=== PATIENT | female | born 1965 | race Caucasian/White ===

== ENCOUNTER → 2016-09-26 | Outpatient (CLI) | payer OTHER ==
[~2016-09-26] MED LIST: CLC/300 PO; DOXY-300 PO; FOLI1TAB7 PO; LEVO500T19 PO; METH2.5T PO; MTR800 PO; ONDA4TAB46 PO; OXYC1TAB3 PO; [UNRECOGNIZED DRUG - CODE] PO
[2016-09-26 13:18] LABS: BASO % 0.3 %; BASO ABS # 0.03 K/uL (0-0.2); COMPLETE YES; EOS % 1.5 %; HEMATOCRIT 43.3 % (37-47); IG% 0.4 %; LYMPH % 23.9 %; LYMPH ABS # 2.27 K/uL (1.2-3.4); MEAN CELL VOLUME 90.6 fL (80-100); MEAN CORPUSCULAR HGB CONC 34.2 g/dl (32-36); MEAN PLATELET VOLUME 10.4 fL (7.4-10.4); MONO % 5.2 %; NEUT % 68.7 %; PLATELET COUNT 318 K/uL (130-400); RED BLOOD COUNT 4.78 M/uL (4.2-5.4); WHITE BLOOD COUNT 9.51 K/uL (4.8-10.8)
[2016-09-26 13:28] LABS: ALT/SGPT 30 U/L (12-78); BLOOD UREA NITROGEN 18 mg/dl (7-18); CALCIUM 9.1 mg/dl (8.5-10.1); CARBON DIOXIDE 25 mmol/L (21-32); CHLORIDE 112 mmol/L (98-107); CHOLESTEROL 199 mg/dl (0-200); CREATININE 0.82 mg/dl (0.60-1.20); GLUCOSE 87 mg/dl (70-99); POTASSIUM 3.9 mmol/L (3.5-5.1); SODIUM 141 mmol/L (136-145); TRIGLYCERIDES 47 mg/dl (0-150); VERY LOW DENSITY LIPOPROT CALC 9 mg/dl
[2016-09-26 13:39] LABS: ALB/GLOB RATIO 1.1 (0.9-2); ALKALINE PHOSPHATASE 62 U/L (45-117); AST/SGOT 22 U/L (15-37); CHOLESTEROL/HDL RATIO 3.6; HDL CHOLESTEROL 55 mg/dl; LDL CHOLESTEROL CALCULATED 135 mg/dl
[2016-09-26 13:39] LABS: ALKALINE PHOSPHATASE 64 U/L (45-117); ALT/SGPT 31 U/L (12-78); AST/SGOT 20 U/L (15-37); C-REACTIVE PROTEIN < 0.29 mg/dl (0-0.29)
[2016-09-26 14:06] LABS: CYCLIC CITRULLINATED PEPT IGG 101.16 U/mL (0-4.99)
[2016-09-28 15:33] LABS: QUANTIF TB AG-NIL 0.09 IU/ML; QUANTIFERON NIL 0.04 IU/ML
== END | disposition home or self-care (01) ==
LOC: C.LABMFLN 08:33
PROVIDERS: ATTEND Internal Medicine
DX: Z00.00 Encounter for general adult medical examination without abnormal findings (principal); Z13.220 Encounter for screening for lipoid disorders; Z13.29 Encounter for screening for other suspected endocrine disorder; Z13.1 Encounter for screening for diabetes mellitus; M19.90 Unspecified osteoarthritis, unspecified site; R89.4 Abnormal immunological findings in specimens from other organs, systems and tissues

== ENCOUNTER → 2016-11-20 | Outpatient (CLI) | payer OTHER ==
[2016-11-20 13:08] LABS: PROTHROMBIN TIME (PATIENT) 10.8 SECONDS (9.0-12.0)
[2016-11-20 13:19] LABS: BASO % 0.2 %; BASO ABS # 0.02 K/uL (0-0.2); COMPLETE YES; EOS % 1.6 %; HEMATOCRIT 47.4 % (37-47); IG% 0.7 %; LYMPH % 23.4 %; MEAN CELL VOLUME 92.2 fL (80-100); MEAN CORPUSCULAR HEMOGLOBIN 30.4 pg (25-34); MEAN CORPUSCULAR HGB CONC 32.9 g/dl (32-36); MEAN PLATELET VOLUME 10.2 fL (7.4-10.4); MONO % 5.6 %; NEUT % 68.5 %; PLATELET COUNT 337 K/uL (130-400); RED BLOOD COUNT 5.14 M/uL (4.2-5.4); WHITE BLOOD COUNT 10.27 K/uL (4.8-10.8)
[2016-11-22 23:57] LABS: HEPATITIS C VIRAL RNA BY PCR <15 NOT DETECTED IU/ML (<15); HEPATITIS C VIRAL RNA(LOG) PCR <1.18 NOT DETECTED LOG IU/ML (<1.18)
[2016-11-23 17:35] LABS: HEPATITIS C RNA TMA QUAL Not detected
== END | disposition home or self-care (01) ==
LOC: C.LABMFLN 10:25
PROVIDERS: ATTEND Internal Medicine
DX: Z01.818 Encounter for other preprocedural examination (principal); Z86.19 Personal history of other infectious and parasitic diseases

== ENCOUNTER → 2016-12-11 | Outpatient (CLI) | payer OTHER ==
[~2016-12-11] MED LIST changes: -DOXY-300 PO; -LEVO500T19 PO
[2016-12-11 18:16] LABS: HEMATOCRIT 42.8 % (37-47); MEAN CELL VOLUME 90.5 fL (80-100); MEAN CORPUSCULAR HEMOGLOBIN 31.3 pg (25-34); MEAN CORPUSCULAR HGB CONC 34.6 g/dl (32-36); MEAN PLATELET VOLUME 10.4 fL (7.4-10.4); PLATELET COUNT 312 K/uL (130-400); RED BLOOD COUNT 4.73 M/uL (4.2-5.4); WHITE BLOOD COUNT 9.41 K/uL (4.8-10.8)
== END | disposition home or self-care (01) ==
LOC: C.LABMFLN 12:25
PROVIDERS: ATTEND Internal Medicine
DX: M05.79 Rheumatoid arthritis with rheumatoid factor of multiple sites without organ or systems involvement (principal)

== ENCOUNTER → 2016-12-14 | Outpatient (CLI) | payer OTHER ==
[~2016-12-14] MED LIST changes: +DOXY-300 PO; +LEVO500T19 PO
== END | disposition home or self-care (01) ==
LOC: C.PATHSPEC 13:17
PROVIDERS: ATTEND Dermatology
DX: L82.1 Other seborrheic keratosis (principal)

== ENCOUNTER 2016-12-16 10:13 | Emergency (ER) | payer OTHER ==
[~2016-12-16] VITALS: Ht 175.3 cm; Wt 93.2 kg
[2016-12-16 10:31] VITALS: TEMP 37.2; Ht 175.3 cm; Wt 93.2 kg
[2016-12-16] MEDS ORDERED: ONDA4TAB46 PO (10:40)
[2016-12-16] MEDS ORDERED: [UNRECOGNIZED DRUG - CODE] PO (10:40)
[2016-12-16] MEDS ORDERED: METH2.5T PO (10:40)
[2016-12-16] MEDS ORDERED: MTR800 PO (10:40)
[2016-12-16] MEDS ORDERED: OXYCODONE IR HOME PACK PO STA (11:06)
[2016-12-16] MEDS ORDERED: AMOXICIL/CLAVU 875MG HOME PACK PO STA (11:06)
[2016-12-16] MEDS ORDERED: CLINDAMYCIN HCL 150 MG CAP PO STA (11:10)
[2016-12-16] MEDS ORDERED: CLINDAMYCIN 150MG HOME PACK PO STA (11:10)
[2016-12-16] MEDS ORDERED: CLC/300 PO (11:12)
[2016-12-16] MEDS ORDERED: OXYC1TAB3 PO (11:12)
--- NOTE | 2016-12-16 11:12 | EMERGENCY ROOM VISIT NOTE ---
ED Visit Note First contact with patient: 10:53 CHIEF COMPLAINT: "Toothache". HISTORY OF PRESENT ILLNESS: This 51-year-old female patient presented to the emergency department via private vehicle with a progressive toothache for past 4 days. The patient believes it is coming from right inferior posterior molar. The pain is now steady and severe and radiates to the face. The patient does not a dentist appointment set up as of yet. They rate their pain a 10/10 and the ibuprofen and Tylenol they have been taking has not relieved the pain. Denies fever but does note she had swelling initially, but has been on penicillin for the past few days. She had to going her pain initially, but now it has returned. The patient denies any discharge from the mouth. REVIEW OF SYSTEMS: A 6 system review of systems was completed with positives and pertinent negatives listed in the HPI. ALLERGIES: None MEDICATIONS: As noted below PMH: No pertinent SOCIAL HISTORY: No pertinent. PHYSICAL EXAM: Vitals are noted on the nurse's note and reviewed by myself. Vital signs stable. Temperature 37.2C orally. GENERAL: 51-year-old female, in no acute distress, nondiaphoretic, well-developed well-nourished. Mouth: The posterior right inferior tooth is very carious and the gum is swollen and tender around it, without any discharge or signs of an abscess. The remainder of the pharynx and tonsils are without erythema, edema, or exudate. The airway is patent. There is no facial swelling, cervical or submandibular lymphadenopathy. The patient appears uncomfortable and in pain. The patient has overall poor dental hygiene. EARS: External auditory canals clear, tympanic membranes pearly michele without erythema or effusion bilaterally. ED COURSE: Patient was seen and evaluated as above. She presents to us today with right inferior dental pain, and the posterior inferior right molar is in poor repair. It will need dental attention by dentist in the future, but at this time I believe that changing the antibiotic from penicillin to clindamycin is appropriate as she is on methotrexate, as well as giving her a pain medicine that will help above that of the baseline [id number] pain meds. She appears stable for outpatient management with a dentist, and our telephonic case manager provided her a list of dentists in the area that will participate. She is also to call the insurance [employer] to identify dentist in the area to participate. She is to return with worsening. She was educated upon management, educated upon worrisome symptoms in which to return, had questions as to discharge, and was discharged home in good condition. In the evaluation and treatment of this patient, the following differential diagnoses were considered: Periapical Abscess, Osteonecrosis of the Jaw, Dental Fracture, Dental Caries, Jeremy's Angina, Vincent's Angina, Facial Cellulitis. In the treatment of this patient controlled medication was utilized and therefore the [facility], Prescription Drug Monitoring Program website was utilized to look up this patient. No concerns were identified that would prohibit or alter my treatment decision. Current/Historical Medications Scheduled Clindamycin HCl (Clindamycin HCl), 1 CAP PO TID Ibuprofen (Ibuprofen), 800 MG PO TID Methotrexate (Methotrexate), 2.5 MG PO WK Penicillin V Potassium (Penicillin V Potassium), 250 MG PO QID Scheduled PRN Ondansetron Hcl (Zofran), 4 MG PO DAILY PRN for Nausea Oxycodone Ir (Roxicodone Ir), 1-2 TAB PO Q4 PRN for Pain Allergies Coded Allergies: No Known Allergies (Unverified , 12/16/16) Vital Signs Date Time Temp Pulse Resp B/P (MAP) Pulse Ox O2 Delivery O2 Flow Rate FiO2 12/16/16 11:21 85 16 146/99 96 12/16/16 10:31 37.2 81 18 120/66 97 Room Air Medications Administered Medications (Trade) Dose Ordered Sig/Michael Route Start Time Stop Time Status Last Admin Dose Admin Oxycodone HCl (Roxicodone Immediate Rel 5MG Home Pack) 1 homepack UD STAT PO 12/16/16 11:06 12/16/16 11:07 DC 12/16/16 11:18 1 HOMEPACK Clindamycin HCl (Cleocin 150MG Home Pack) 1 homepack UD STAT PO 12/16/16 11:10 12/16/16 11:11 DC 12/16/16 11:18 1 HOMEPACK Clindamycin HCl (Cleocin Cap) 300 mg NOW STAT PO 12/16/16 11:10 12/16/16 11:11 DC 12/16/16 11:18 300 MG Departure Information Impression Primary Impression: Dental caries Additional Impression: Odontalgia Dispostion Home / Self-Care Condition GOOD Prescriptions Clindamycin HCl (Clindamycin HCl) 300 Mg Cap 1 CAP PO TID for 7 Days, #21 CAP Prov: Teddy Luna PA-C 12/16/16 Oxycodone Ir (Roxicodone Ir) 5 Mg Tab 1-2 TAB PO Q4 Y for Pain, #15 TAB For Initial Treatment Prov: Teddy Luna PA-C 12/16/16 Referrals Raquel Gamez (PCP) Patient Instructions My [facility] Additional Instructions You have been treated in the Emergency Department for Dental Pain. You have received pain medicine in the emergency department which impairs your ability to operate a vehicle. It is illegal for you to drive after receiving these medicines. You have been prescribed Oxy IR to be used for pain control. This is a narcotic medication. You cannot drive or consume alcohol while on this medicine. This medicine should only be used for pain that cannot be controlled with over-the- counter pain medicines. You were prescribed Clindamycin to be taken three times daily (every 8 hours). This is an antibiotic. All antibiotics have the potential to cause diarrhea. Stop this medication and contact a medical provider if you were to develop any significant adverse side effects including: wheezing, shortness of breath, passing out, vomiting, or a diffuse rash. Always take antibiotics as directed and COMPLETE the ENTIRE course regardless of the improvement of your symptoms. For pain control, you can use the following [id number] medicines if no kidney or liver problems(if >12 yo): - Regular strength (325mg/tab) Tylenol (acetaminophen) 2 tabs every 4-6 hours as needed. Do not exceed 12 tablets in a 24 hour period. Avoid taking more than 3 grams (3000 mg) of Tylenol per day. This includes any other sources of acetaminophen you may take on a regular basis. - Regular strength (200 mg/tab) Advil (ibuprofen) 1-2 tabs every 4-6 hours as needed. Do not exceed a dose of 3200 mg per day. Refrain from smoking cigarettes or using chewing tobacco until you have been evaluated by your dentist. Keeping beverages lukewarm and consuming soft foods can decrease your pain. Warm compresses over the affected area may offer some relief. You MUST seek evaluation of your dental pain by a dentist following your visit to the Emergency Department. The Emergency Department is not capable of treating dental issues long-term. You should call your dentist as soon as possible to make an appointment for evaluation of your dental pain. Return to the emergency department if you develop the following symptoms despite treatment course outlined above: fever, intractable pain, increased redness, swelling, or purulent discharge. Problem Qualifiers
[2016-12-16 11:21] VITALS: BP 146/99; PULSE 85; O2SAT 96
[2016-12-16] MEDS ORDERED: FOLI1TAB7 PO (22:24)
== END 2016-12-16 11:20 | disposition home or self-care (01) ==
LOC: C.EDB 10:15 → C.EDD 11:20
DX: K02.9 Dental caries, unspecified (principal); K08.89 Other specified disorders of teeth and supporting structures

== ENCOUNTER 2016-12-16 20:07 | Inpatient (IN) | payer OTHER ==
[~2016-12-16] VITALS: Ht 175.3 cm; Wt 93.4 kg
[~2016-12-16 20:07] MED LIST changes: -DOXY-300 PO; -FOLI1TAB7 PO; -LEVO500T19 PO
[2016-12-16] MEDS ORDERED: SODIUM CHLORIDE 0.9% 1000ML 1,000 ML IV STA ×2 (21:22)
[2016-12-16 21:55] LABS: BASO % 0.1 %; BASO ABS # 0.01 K/uL (0-0.2); COMPLETE YES; EOS % 0.7 %; IG% 0.3 %; LYMPH % 10.9 %; LYMPH ABS # 1.43 K/uL (1.2-3.4); MEAN CELL VOLUME 88.6 fL (80-100); MEAN CORPUSCULAR HEMOGLOBIN 30.8 pg (25-34); MEAN CORPUSCULAR HGB CONC 34.8 g/dl (32-36); MONO % 5.3 %; NEUT % 82.7 %; PLATELET COUNT 302 K/uL (130-400); RED BLOOD COUNT 4.74 M/uL (4.2-5.4); WHITE BLOOD COUNT 13.12 K/uL (4.8-10.8)
[2016-12-16] MEDS ORDERED: ACETAMINOPHEN 500 MG TAB PO STA (22:02)
[2016-12-16] MEDS ORDERED: ONDANSETRON 8 MG/54 ML D5W IV STA (22:02)
[2016-12-16 22:08] LABS: PARTIAL THROMBOPLASTIN RATIO 0.9; PROTHROMBIN TIME (PATIENT) 11.1 SECONDS (9.0-12.0)
[2016-12-16] MEDS: HYDROmorphone INJ 1 MG/ML SYR IV PRN (22:14)
[2016-12-16] MEDS ORDERED: AMPICILLIN/SULBACTAM SOD INJ 3,000 MG in SODIUM CHLORIDE 0.9% 100ML 100 ML IV ONE (22:15)
[2016-12-16 22:23] LABS: ALT/SGPT 21 U/L (12-78); BLOOD UREA NITROGEN 17 mg/dl (7-18); BUN/CREATININE RATIO 22.8 (10-20); CALCIUM 9.2 mg/dl (8.5-10.1); CARBON DIOXIDE 24 mmol/L (21-32); CHLORIDE 107 mmol/L (98-107); CREATININE 0.74 mg/dl (0.60-1.20); GLUCOSE 108 mg/dl (70-99); MAGNESIUM 2.1 mg/dl (1.8-2.4); POTASSIUM 4.6 mmol/L (3.5-5.1); SODIUM 138 mmol/L (136-145)
[2016-12-16] MEDS ORDERED: FOLI1TAB7 PO (22:24)
[2016-12-16 22:37] LABS: ALKALINE PHOSPHATASE 77 U/L (45-117); AST/SGOT 20 U/L (15-37)
[2016-12-16] MEDS ORDERED: OPTIRAY 320 IV PRN (22:45)
[2016-12-17] MEDS: HYDROmorphone INJ 1 MG/ML SYR IV PRN ×2 (00:32→20:39)
[2016-12-17 00:47] LABS: URINE APPEARANCE CLEAR (CLEAR); URINE BILIRUBIN NEG (NEG); URINE COLOR YELLOW; URINE NITRITE NEG (NEG); URINE PH 5.5 (4.5-7.5); URINE SPECIFIC GRAVITY 1.044 (1.000-1.030); UROBILINOGEN NEG (NEG)
[2016-12-17 00:52] LABS: MANUAL MICROSCOPIC REQUIRED? NO; REVIEW REQ? NO
[2016-12-17] MEDS ORDERED: VANCOMYCIN INJ 1,000 MG in SODIUM CHLORIDE 0.9% 250ML 250 ML IV STA (01:14)
[2016-12-17] MEDS ORDERED: MAGNESIUM HYDROXIDE SUSP 30 ML UDC PO PRN (01:15)
[2016-12-17] MEDS ORDERED: POLYETHYLENE (MIRALAX) 17 GM PACK PO PRN (01:15)
[2016-12-17] MEDS ORDERED: ACETAMINOPHEN 325 MG TAB PO PRN (01:15)
[2016-12-17] MEDS ORDERED: ONDANSETRON 4 MG TAB PO PRN (01:15)
[2016-12-17] MEDS ORDERED: ONDANSETRON INJ 2 MG/ML 2 ML VIAL IV PRN (01:15)
[2016-12-17] MEDS ORDERED: DAPTOmycin IV 390 MG in SODIUM CHLORIDE 0.9% 50ML 50 ML IV SCH (01:15)
[2016-12-17] MEDS ORDERED: ZOLPIDEM TARTRATE 5 MG TAB PO PRN (01:15)
[2016-12-17] MEDS ORDERED: ALUMINUM/MAGNESIUM/SIMETH (MAALOX MAX) 30 ML UDC PO PRN (01:15)
--- NOTE | 2016-12-17 01:23 | History and Physical ---
History & Physical Date & Time of Service: Dec 17, 2016 at 01:19 Chief Complaint: Fever 103.2,Nausea Primary Care Physician: Raquel Gamez History of Present Illness Source: patient, family Carmen is a 51 yo F with RA, on methotrexate, who presents with facial cellulitis x 1.5 weeks. She had a lipoma on her foot removed in surgery at [facility] about 2 weeks ago. She noticed tooth pain to the R bottom jaw and then this progressed to redness and pain over the R side of her face about 1.5 weeks ago. She saw her PCP who put her on Penicillin. She did not notice improvement so came to the ED, and was placed on Clindamycin PO. She still had persistent pain today so returned to the ED. She has never had an infection before. She does have a lower tooth which she reports needs to come out. She takes methotrexate on . Past Medical/Surgical History Medical Problems: (1) Facial cellulitis (2) Failure of outpatient treatment (3) Tooth infection PSHx - Lipoma removal - Skin ca removal Family History Family members have multiple cysts but no hx of MRSA. No other pertinent FHx Social History Smoking Status: Current Every Day Smoker Alcohol Use: none Drug Use: none Housing status: lives with family Immunizations History of Influenza Vaccine: Unknown History of Tetanus Vaccine?: Unknown History of Pneumococcal: Unknown History of Hepatitis B Vaccine: Unknown Multi-Drug Resistant Organisms History of MDRO: No Allergies Coded Allergies: No Known Allergies (Unverified , 12/16/16) Home Medications Scheduled Clindamycin HCl (Clindamycin HCl), 1 CAP PO TID Folic Acid (Folvite), 1 MG PO DAILY Methotrexate (Methotrexate), 10 MG PO WK Scheduled PRN Ibuprofen (Ibuprofen), 800 MG PO TID PRN for Pain Ondansetron Hcl (Zofran), 4 MG PO DAILY PRN for Nausea Oxycodone Ir (Roxicodone Ir), 1-2 TAB PO Q4 PRN for Pain Review of Systems See HPI for pertinent positives & negatives. A total of 10 systems reviewed and were otherwise negative. Physical Exam Vital Signs Date Time Temp Pulse Resp B/P (MAP) Pulse Ox O2 Delivery O2 Flow Rate FiO2 12/16/16 23:36 89 18 99/65 96 Room Air 12/16/16 22:00 98 16 132/80 96 Room Air 12/16/16 21:46 98 12/16/16 21:37 97 Room Air 12/16/16 20:23 37.4 111 20 96/58 96 Room Air General Appearance: WD/WN, + mild distress Head: normocephalic, atraumatic Eyes: normal inspection, PERRL ENT: hearing grossly normal, + pertinent finding (tenderness and swelling to R lower jaw. No palpable abscess. Cellulitis to R side of face and neck.) Neck: no JVD Respiratory/Chest: lungs clear, normal breath sounds, no respiratory distress Cardiovascular: regular rate, rhythm, no murmur Abdomen/GI: non tender, soft Back: no CVA tenderness, no muscle spasm Extremities/Musculoskelatal: no calf tenderness, no pedal edema Neurologic/Psych: alert, normal mood/affect, normal reflexes, oriented x 3 Skin: no rash Diagnostics Laboratory Results Results Past 24 Hours Test 12/16/16 21:33 12/17/16 00:23 Range/Units White Blood Count 13.12 4.8-10.8 K/uL Red Blood Count 4.74 4.2-5.4 M/uL Hemoglobin 14.6 12.0-16.0 g/dL Hematocrit 42.0 37-47 % Mean Corpuscular Volume 88.6 80-100 fL Mean Corpuscular Hemoglobin 30.8 25-34 pg Mean Corpuscular Hemoglobin Concent 34.8 32-36 g/dl Platelet Count 302 130-400 K/uL Mean Platelet Volume 10.0 7.4-10.4 fL Neutrophils (%) (Auto) 82.7 % Lymphocytes (%) (Auto) 10.9 % Monocytes (%) (Auto) 5.3 % Eosinophils (%) (Auto) 0.7 % Basophils (%) (Auto) 0.1 % Neutrophils # (Auto) 10.85 1.4-6.5 K/uL Lymphocytes # (Auto) 1.43 1.2-3.4 K/uL Monocytes # (Auto) 0.70 0.11-0.59 K/uL Eosinophils # (Auto) 0.09 0-0.5 K/uL Basophils # (Auto) 0.01 0-0.2 K/uL RDW Standard Deviation 42.2 36.4-46.3 fL RDW Coefficient of Variation 13.0 11.5-14.5 % Immature Granulocyte % (Auto) 0.3 % Immature Granulocyte # (Auto) 0.04 0.00-0.02 K/uL Prothrombin Time 11.1 9.0-12.0 SECONDS Prothromb Time International Ratio 1.0 0.9-1.1 Activated Partial Thromboplast Time 24.0 21.0-31.0 SECONDS Partial Thromboplastin Ratio 0.9 Sodium Level 138 136-145 mmol/L Potassium Level 4.6 3.5-5.1 mmol/L Chloride Level 107 98-107 mmol/L Carbon Dioxide Level 24 21-32 mmol/L Anion Gap 7.0 3-11 mmol/L Blood Urea Nitrogen 17 7-18 mg/dl Creatinine 0.74 0.60-1.20 mg/dl Est Creatinine Clear Calc Drug Dose 111.6 ml/min Estimated GFR () 107.2 Estimated GFR (Non- 92.5 BUN/Creatinine Ratio 22.8 10-20 Random Glucose 108 70-99 mg/dl Calcium Level 9.2 8.5-10.1 mg/dl Magnesium Level 2.1 1.8-2.4 mg/dl Total Bilirubin 0.5 0.2-1 mg/dl Direct Bilirubin 0-0.2 mg/dl Aspartate Amino Transf (AST/SGOT) 20 15-37 U/L Alanine Aminotransferase (ALT/SGPT) 21 12-78 U/L Alkaline Phosphatase 77 45-117 U/L Total Protein 7.1 6.4-8.2 gm/dl Albumin 3.8 3.4-5.0 gm/dl Lipase 194 73-393 U/L Thyroid Stimulating Hormone (TSH) 4.580 0.300-4.500 uIu/ml Chemistry Specimen Hemolysis Urine Color YELLOW Urine Appearance CLEAR CLEAR Urine pH 5.5 4.5-7.5 Urine Specific [place] 1.044 1.000-1.030 Urine Protein NEG NEG Urine Glucose (UA) NEG NEG Urine Ketones NEG NEG Urine Occult Blood NEG NEG Urine Nitrite NEG NEG Urine Bilirubin NEG NEG Urine Urobilinogen NEG NEG Urine Leukocyte Esterase NEG NEG Microbiology Results 12/16/16 Blood Culture, Received Pending 12/16/16 Blood Culture, Received Pending 12/16/16 Urine Culture, Marko Batch Pending Impression Assessment and Plan 51 yo F - facial cellulitis x 1.5 weeks, no abscess on CT, failed outpatient tx Cellulitis - Broaden abx to Vanco and Zosyn - ID consult RA - Hold MTX until it clears Dispo: Med/Surg VTE: SCDs Code status: Full Attending Addendum: I have physically seen and examined this patient, have directed the resident's medical activities, and agree with the H&P as noted above with the following exceptions as noted. The patient is awake, alert and oriented 3, well-developed and well-nourished , right sided facial swelling along mandible and neck, sitting upright in bed and in no acute distress. HEENT--PERRL, EOMI, mucous membranes and oropharynx normal Neck--supple, no JVD or bruits, thyroid normal, trachea midline. Swelling along right mandibular area extending to right side of neck to the sternoclavicular area. Heart--normal S1 and S2, no extra beats, no murmurs, rubs or gallops. Lungs--clear bilaterally but diminished throughout, no respiratory distress, no accessory muscle use. Abdomen--normal bowel sounds and soft, nontender and nondistended, no hernias or masses, no organomegaly. Extremities--no cyanosis, clubbing or edema. There are good distal pulses b/l. Dermatologic--normal skin turgor, normal color, warm and dry, no abnormal lymph nodes, no rash. Neurologic--cranial nerves II through XII grossly intact. Rheumatologic--normal range of motion, nontender, muscles and joints. Psychiatric--normal affect. Assessment and Plan: Right sided Facial cellulitis/extensive dental caries/right platysma inflammation-- The patient failed outpatient oral antibiotics, which was initially penicillin by her PCP, and then changed to clindamycin by the ED. Place on vancomycin IV and Zosyn IV. We'll need to follow up with maxillofacial surgery, as will likely need significant dental extractions. Toradol IV for pain. Rheumatoid arthritis-- Methotrexate will need to be held until infection has cleared. 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 Level of Care Med/Surg Advanced Directives Existing Advance Directive: No Existing Living Will: No Existing Power of Television Maintenance Man: No Resuscitation Status FULL RESUSCITATION VTE Prophylaxis VTE Risk Assessment Done? Y/N: Yes Risk Level: Moderate Given or contraindicated: SCD's Social Service Consult None Apply Resident Tracking Resident Involvement: Resident Care Provided Care Provided: Adult Hospital Medicine
[2016-12-17] MEDS ORDERED: VANCOMYCIN 1GM/270ML NSS ONE (01:46)
[2016-12-17 02:20] VITALS: BP 105/66; PULSE 64; TEMP 36.8; O2SAT 95; Ht 175.3 cm; Wt 93.4 kg
[2016-12-17] MEDS: HYDROmorphone INJ 0.5 MG/0.5 ML SYR IV PRN ×4 (03:28→16:35)
--- NOTE | 2016-12-17 03:36 | EMERGENCY ROOM VISIT NOTE ---
History Report prepared by Bee: Petros Riddle Under the Supervision of: Dr. Moses Maher M.D. First contact with patient: 21:21 Chief Complaint: FEVER Stated Complaint: FEVER 103.2,NAUSEA History of Present Illness The patient is a 51 year old female who presents to the Emergency Room with complaints of a constant fever of 103 starting around 1930 due to a worsening right sided tooth infection. The patient states that she is having some right sided facial pain and swelling, and it has worsened over the past week and a half. She notes that she is having some nausea. The patient was put on penicillin by her PCP, though it got significantly worse this morning, and she was put on clindamycin. The patient states that she has not seen a dentist yet. She states that she takes methotrexate and has taken Tylenol and oxycodone. Pt denies LOC, headache, chills, diaphoresis, visual changes, neck pain, chest pain , breathing difficulties, vomiting, abdominal pain, back pain, melena, hematochezia, urinary symptoms, numbness, weakness, lymphadenopathy, rash, or other complaints. Source of History: patient Onset: 1929 Position: other (global) Quality: other (fever) Timing: constant Associated Symptoms: + nausea Note: Associated symptoms: Dental pain Review of Systems See HPI for pertinent positives and negatives. A total of ten systems were reviewed and were otherwise negative. Past Medical & Surgical Medical Problems: (1) Facial cellulitis (2) Failure of outpatient treatment (3) Tooth infection Social History Smoking Status: Current Every Day Smoker Marital Status: single Occupation Status: employed Current/Historical Medications Scheduled Clindamycin HCl (Clindamycin HCl), 1 CAP PO TID Folic Acid (Folvite), 1 MG PO DAILY Methotrexate (Methotrexate), 10 MG PO WK Scheduled PRN Ibuprofen (Ibuprofen), 800 MG PO TID PRN for Pain Ondansetron Hcl (Zofran), 4 MG PO DAILY PRN for Nausea Oxycodone Ir (Roxicodone Ir), 1-2 TAB PO Q4 PRN for Pain Allergies Coded Allergies: No Known Allergies (Unverified , 12/16/16) Physical Exam Vital Signs Date Time Temp Pulse Resp B/P (MAP) Pulse Ox O2 Delivery O2 Flow Rate FiO2 12/16/16 23:36 89 18 99/65 96 Room Air 12/16/16 22:00 98 16 132/80 96 Room Air 12/16/16 21:46 98 12/16/16 21:37 97 Room Air 12/16/16 20:23 37.4 111 20 96/58 96 Room Air Physical Exam GENERAL: Awake, alert, uncomfortable-appearing, in no distress HENT: Broken carious molar on the right lower side. Moderate facial swelling in the right jaw. Floor of the mouth and tongue are normal. Normocephalic, atraumatic. Oropharynx unremarkable. EYES: Normal conjunctiva. Sclera non-icteric. NECK: Supple. No nuchal rigidity. FROM. No JVD. RESPIRATORY: Clear to auscultation. CARDIAC: Regular rate, normal rhythm. Extremities warm and well perfused. Pulses equal. ABDOMEN: Soft, non-distended. No tenderness to palpation. No rebound or guarding. No masses. RECTAL: Deferred. MUSCULOSKELETAL: Chest examination reveals no tenderness. The back is symmetrical on inspection without obvious abnormality. There is no CVA tenderness to palpation. No joint edema. LOWER EXTREMITIES: Calves are equal size bilaterally and non-tender. No edema. No discoloration. NEURO: Normal sensorium. No sensory or motor deficits noted. SKIN: No rash or jaundice noted. Medical Decision & Procedures ER Provider Diagnostic Interpretation: Radiology results as stated below per my review and radiologist interpretation: CT NECK: Prominent fat stranding and swelling in the soft tissues over the right mandible. Inflammation/thickening of the right platysma. No soft tissue fluid collection. Prominent dental disease in several mandibular and maxillary teeth, greatest on the right. Small lymph nodes are likely reactive. Small polyp versus mucous retention cyst in the left maxillary sinus. Mild degenerative changes of the cervical spine with straightening of the normal cervical lordosis. Radiologist: Angel Sr M.D. Laboratory Results 12/16/16 21:33 Red Blood Count 4.74, Mean Corpuscular Volume 88.6, Mean Corpuscular Hemoglobin 30.8, Mean Corpuscular Hemoglobin Concent 34.8, Mean Platelet Volume 10.0, Neutrophils (%) (Auto) 82.7, Lymphocytes (%) (Auto) 10.9, Monocytes (%) (Auto) 5.3, Eosinophils (%) (Auto) 0.7, Basophils (%) (Auto) 0.1, Neutrophils # (Auto) 10.85, Lymphocytes # (Auto) 1.43, Monocytes # (Auto) 0.70, Eosinophils # (Auto) 0.09, Basophils # (Auto) 0.01 12/16/16 21:33 Test 12/16/16 21:33 12/17/16 00:23 White Blood Count 13.12 K/uL (4.8-10.8) Red Blood Count 4.74 M/uL (4.2-5.4) Hemoglobin 14.6 g/dL (12.0-16.0) Hematocrit 42.0 % (37-47) Mean Corpuscular Volume 88.6 fL (80-100) Mean Corpuscular Hemoglobin 30.8 pg (25-34) Mean Corpuscular Hemoglobin Concent 34.8 g/dl (32-36) Platelet Count 302 K/uL (130-400) Mean Platelet Volume 10.0 fL (7.4-10.4) Neutrophils (%) (Auto) 82.7 % Lymphocytes (%) (Auto) 10.9 % Monocytes (%) (Auto) 5.3 % Eosinophils (%) (Auto) 0.7 % Basophils (%) (Auto) 0.1 % Neutrophils # (Auto) 10.85 K/uL (1.4-6.5) Lymphocytes # (Auto) 1.43 K/uL (1.2-3.4) Monocytes # (Auto) 0.70 K/uL (0.11-0.59) Eosinophils # (Auto) 0.09 K/uL (0-0.5) Basophils # (Auto) 0.01 K/uL (0-0.2) RDW Standard Deviation 42.2 fL (36.4-46.3) RDW Coefficient of Variation 13.0 % (11.5-14.5) Immature Granulocyte % (Auto) 0.3 % Immature Granulocyte # (Auto) 0.04 K/uL (0.00-0.02) Prothrombin Time 11.1 SECONDS (9.0-12.0) Prothromb Time International Ratio 1.0 (0.9-1.1) Activated Partial Thromboplast Time 24.0 SECONDS (21.0-31.0) Partial Thromboplastin Ratio 0.9 Anion Gap 7.0 mmol/L (3-11) Est Creatinine Clear Calc Drug Dose 111.6 ml/min Estimated GFR () 107.2 Estimated GFR (Non- 92.5 BUN/Creatinine Ratio 22.8 (10-20) Calcium Level 9.2 mg/dl (8.5-10.1) Magnesium Level 2.1 mg/dl (1.8-2.4) Total Bilirubin 0.5 mg/dl (0.2-1) Direct Bilirubin mg/dl (0-0.2) Aspartate Amino Transf (AST/SGOT) 20 U/L (15-37) Alanine Aminotransferase (ALT/SGPT) 21 U/L (12-78) Alkaline Phosphatase 77 U/L (45-117) Total Protein 7.1 gm/dl (6.4-8.2) Albumin 3.8 gm/dl (3.4-5.0) Lipase 194 U/L (73-393) Thyroid Stimulating Hormone (TSH) 4.580 uIu/ml (0.300-4.500) Chemistry Specimen Hemolysis Urine Color YELLOW Urine Appearance CLEAR (CLEAR) Urine pH 5.5 (4.5-7.5) Urine Specific [place] 1.044 (1.000-1.030) Urine Protein NEG (NEG) Urine Glucose (UA) NEG (NEG) Urine Ketones NEG (NEG) Urine Occult Blood NEG (NEG) Urine Nitrite NEG (NEG) Urine Bilirubin NEG (NEG) Urine Urobilinogen NEG (NEG) Urine Leukocyte Esterase NEG (NEG) Laboratory results reviewed by me Medications Administered Medications (Trade) Dose Ordered Sig/Michael Route Start Time Stop Time Status Last Admin Dose Admin Sodium Chloride 1,000 ml @ 125 mls/hr Q8H STAT IV 12/16/16 21:22 12/17/16 05:21 12/16/16 22:41 125 MLS/HR Sodium Chloride 1,000 ml @ 999 mls/hr Q1H1M STAT IV 12/16/16 21:22 12/16/16 22:22 DC 12/16/16 21:46 999 MLS/HR Ampicillin Sodium/ Sulbactam Sodium 3000 mg/Sodium Chloride 108 ml @ 200 mls/hr ONE ONCE IV 12/16/16 22:15 12/16/16 22:47 DC 12/16/16 22:41 200 MLS/HR Acetaminophen (Tylenol Tab) 1,000 mg NOW STAT PO 12/16/16 22:02 12/16/16 22:04 DC 12/16/16 22:14 1,000 MG Hydromorphone HCl (Dilaudid Inj) 1 mg Q15M PRN IV 12/16/16 22:15 12/30/16 22:14 12/17/16 00:32 1 MG Ondansetron HCl (Zofran 8mg Iv) 8 mg NOW STAT IV 12/16/16 22:02 12/16/16 22:04 DC 12/16/16 22:13 8 MG Hydromorphone HCl (Dilaudid Inj) 0.5 mg Q4H PRN IV 12/17/16 01:15 12/31/16 01:14 12/17/16 03:28 0.5 MG ED Course 2: Sodium Chloride 1000 ml @ 999 mls/hr IV, Sodium Chloride 1000 ml @ 125 mls /hr IV 0: The patient was evaluated in room C11. A complete history and physical exam was performed. 2202: Tylenol Tab 1000mg PO, Zofran 8mg IV 2323: I reevaluated the patient, and she was feeling better, and she is waiting on radiology reports. 0054: Upon reexamination, the patient was doing well. I discussed the test results and treatment plan with her. The patient will be evaluated for further management. 0101: Discussed the patient's case with Dr. Euceda. The patient will be evaluated for further treatment and disposition. Medical Decision Triage Nursing notes reviewed. The patient's presentation and history were concerning for facial swelling. Etiologies such as abscess, cellulitis, dental infection, trauma, malignancy, as well as others were entertained. The patient was evaluated. She has poor dentition in the right lower side. She has significant facial swelling and tenderness. Unfortunately she has failed both penicillin and clindamycin as an outpatient. An IV was established. She was given IV Unasyn and normal saline hydration. The patient was also treated with IV Dilaudid. She felt better with this but did require second dose. The patient has a mild leukocytosis. Chemistry panel was unremarkable. The patient is dealing with rheumatoid arthritis and is on methotrexate which will make her somewhat immunocompromised. Since she is worsening a CT scan was ordered and as noted above shows mostly soft tissue infection without any significant abscess. I discussed further evaluation and management in the hospital with the patient. She was in agreement. Consultation was made with internal medicine. The patient was evaluated in the emergency department for further care. Medication Reconcilliation Current Medication List: was personally reviewed by me Blood Pressure Screening Patient's blood pressure: Normal blood pressure Consults Time Called: 54 Consulting Physician: Dr. Euceda Returned Call: 010 Discussed the patient's case with Dr. Euceda. The patient will be evaluated for further treatment and disposition. Impression Primary Impression: Facial cellulitis Additional Impression: Failure of outpatient treatment Scribe Attestation The scribe's documentation has been prepared under my direction and personally reviewed by me in its entirety. I confirm that the note above accurately reflects all work, treatment, procedures, and medical decision making performed by me. Departure Information Dispostion Being Evaluated By Hospitalist Referrals Raquel Gamez (PCP) Patient Instructions My [facility] Problem Qualifiers
[2016-12-17] MEDS ORDERED: PIPERACILL/TAZOBAC IV 3.375 GM in DEXTROSE 5% 100ML IV ONE (04:00)
[2016-12-17] MEDS ORDERED: PIPERACILL/TAZOBAC CONSULT ACTIVE PRN (04:00)
[2016-12-17] MEDS ORDERED: VANCOMYCIN CONSULT ACTIVE PRN (04:00)
[2016-12-17] MEDS: VANCOMYCIN INJ 1,500 MG in SODIUM CHLORIDE 0.9% 500ML 500 ML IV SCH ×2 (05:38→14:23)
--- NOTE | 2016-12-17 07:20 | DIAGNOSTIC IMAGING REPORT ---
CT SOFT TISSUE NECK WITH CT DOSE: 606.62 mGy.cm CLINICAL HISTORY: right jaw swelling, infection TECHNIQUE: Helical images were acquired during intravenous administration of 92 cc of Optiray 320. A dose lowering technique was utilized adhering to the principles of ALARA. COMPARISON STUDY: None. FINDINGS: The visualized portions of the lung apices are unremarkable. No thyroid masses are visualized. No salivary gland masses are visualized. There are no pathologically enlarged cervical lymph nodes. No necrotic nodes are evident. There are no fluid collections suspicious for a soft tissue abscess. There is no evidence of airway compromise. No mucosal space masses are visualized. There is right-sided perimandibular edema, with thickening of the platysma.. There is a tiny right-sided mandibular periapical dental abscess. IMPRESSION: 1. Dental disease with right-sided perimandibular soft tissue edema 2. No evidence of soft tissue abscess 3. No evidence of airway compromise Electronically signed by: Yanick Mandujano M.D. 12/17/2016 7:19 AM Dictated Date/Time: 12/17/2016 7:14 AM
[2016-12-17 07:25] VITALS: BP 108/66; PULSE 59; TEMP 36.8; O2SAT 97
[2016-12-17] MEDS: IBUPROFEN 800 MG TAB PO PRN ×2 (07:57→17:32)
[2016-12-17] MEDS: NICOTINE 14 MG/24 HR TDSY TD SCH (07:58)
[2016-12-17] MEDS ORDERED: VANCOMYCIN INJ 1,000 MG in SODIUM CHLORIDE 0.9% 250ML 250 ML IV SCH (09:00)
--- NOTE | 2016-12-17 10:07 | Progress Note ---
Progress Note Date of Service Dec 17, 2016. Progress Note ID Consult Dictated #[id number] A/P: 1. Facial Cellulitis/infected tooth -Can continue IV abx for now, cultures pending -Needs tooth extraction -thank you
[2016-12-17] MEDS: PIPERACILL/TAZOBAC IV 3.375 GM in DEXTROSE 5% 100ML 100 ML IV SCH ×2 (10:09→17:35)
--- NOTE | 2016-12-17 10:49 | Pharmacy Progress Note ---
Pharmacy Abx Initial Consult Date of Service Dec 17, 2016. Pharmacy Dosing Scope Date of Consult: 12/17/16 Consultation requested by: Dr. Euceda Pharmacy is consulted to initiate VANCOMYCIN and ZOSYN IV therapy, order appropriate labs and adjust drug dose/frequency. Subjective The patient is a 51 year old female admitted on Dec 17, 2016 at 01:18 for facial cellulitis, tooth infection, jaw pain Objective Height (Feet): 5 Height (Inches): 9.00 Weight (Kilograms): 93.400 Vital Signs (Past 12Hrs) Vital Signs Past 12 Hours Date Time Temp Pulse Resp B/P (MAP) Pulse Ox O2 Delivery O2 Flow Rate FiO2 12/17/16 07:25 36.8 59 18 108/66 (80) 97 Room Air 12/17/16 02:20 36.8 64 18 105/66 95 Room Air 12/17/16 01:57 75 18 110/63 96 12/17/16 01:19 81 12/16/16 23:36 89 18 99/65 96 Room Air Lab Results (24Hrs) Laboratory Tests (24 Hours) Test 12/16/16 21:33 White Blood Count 13.12 K/uL (4.8-10.8) H Red Blood Count 4.74 M/uL (4.2-5.4) Hemoglobin 14.6 g/dL (12.0-16.0) Hematocrit 42.0 % (37-47) Mean Corpuscular Volume 88.6 fL (80-100) Mean Corpuscular Hemoglobin 30.8 pg (25-34) Mean Corpuscular Hemoglobin Concent 34.8 g/dl (32-36) Platelet Count 302 K/uL (130-400) Mean Platelet Volume 10.0 fL (7.4-10.4) Neutrophils (%) (Auto) 82.7 % Lymphocytes (%) (Auto) 10.9 % Monocytes (%) (Auto) 5.3 % Eosinophils (%) (Auto) 0.7 % Basophils (%) (Auto) 0.1 % Neutrophils # (Auto) 10.85 K/uL (1.4-6.5) H Lymphocytes # (Auto) 1.43 K/uL (1.2-3.4) Monocytes # (Auto) 0.70 K/uL (0.11-0.59) H Eosinophils # (Auto) 0.09 K/uL (0-0.5) Basophils # (Auto) 0.01 K/uL (0-0.2) Micro Results Date/Time Source Procedure Growth Status 12/16/16 21:45 Blood Blood Culture Pending Received 12/16/16 21:33 Blood Blood Culture Pending Received 12/17/16 03:33 Nasal MRSA DNA Surveillance Screen - Final Specimen Negative for MRSA by DNA Probe Complete 12/17/16 00:23 Urine , Clean Catch Urine Culture Pending Received Risk Factors for Resistance * Recent foot surgery [facility] * h/o rheumatoid arthritis receiving MTX * Use of PCN and Clindamycin prior to admission for tooth infection Assessment & Plan Assessment * 51 year old female admitted for R jaw pain, dental infxn, and facial cellulitis failing outpt abx therapy * empiric therapy with vancomycin + Zosyn ordered at this time - orders for both initiated by overnight h Plan Vancomycin IV * 1000mg IV x 1 given in ED at 0147,however this would have been inadequate to produce a therapeutic peak, may have achieved a conc of only 10-15mcg/mL. As a result, the maintenance dose of 1500mg (~16mg/kg) IV Q 10 hours was started at 0500 this AM * Goal trough level for facial cellulitis / dental infxn : 15 to 20 mcg/mL initially * Trough level ordered for 12/18/16 with 4th maintenance dose * P'kinetic estimates: half-life ~7-8 hours, Vd 0.7L/kg Piperacillin/tazobactam * 3.375 g bolus administered over 30 minutes, then 3.375 g IV extended infusion every 8 hours for CrCl greater than 20 mL/min Pharmacy will continue to follow and will adjust dose/frequency as necessary. Thank you.
--- NOTE | 2016-12-17 10:58 | INFECT. DISEASE CONSULTATION ---
DATE OF CONSULTATION: 12/17/2016 REQUESTING PHYSICIAN: Dr. Massey. HISTORY OF PRESENT ILLNESS: This is a 51-year-old female who was recently diagnosed with facial cellulitis due to a tooth infection. She was given penicillin from her dentist and took this for 3 days. She did not have significant improvement and came to the ER yesterday. At that time, she was changed to clindamycin and was discharged home; however, she returned with worsening pain and was subsequently admitted. She was placed on Zosyn and vancomycin overnight and is tolerating these well. She has been afebrile. She does have a white blood cell count of 13.1. She did have a CAT scan in the ER which did not show any evidence of abscess. She states the surgical consult is pending for tooth extraction. She denies fevers or chills. She denies any drainage into the mouth. She denies any difficulty swallowing. She only complains of facial pain. She just received pain medication and states this is helping significantly. She denies any chest pain, cough, shortness of breath, nausea, vomiting or diarrhea. PAST MEDICAL HISTORY: Significant for rheumatoid arthritis, on methotrexate. PAST SURGICAL HISTORY: Significant for lipoma resection as well as removal of superficial skin cancer. FAMILY HISTORY: Noncontributory. SOCIAL HISTORY: Significant for daily tobacco use. She denies any alcohol or drug use. ALLERGIES: She has no known drug allergies. CURRENT MEDICATIONS: Include nicotine patch, Zosyn, folic acid, vancomycin, Tylenol, Maalox, milk of magnesia, MiraLax, Ambien, Zofran, Motrin, and Dilaudid. PHYSICAL EXAMINATION: VITAL SIGNS: She is afebrile, pulse 59, respiratory rate 18, blood pressure 108/66. Oxygen saturation is 97% on room air. GENERAL: She is awake, alert and oriented x3. She is in no acute distress. HEENT: Mucous membranes are moist. Extraocular muscles are intact. Dentition is poor. There is significant right-sided facial induration. There is no erythema. There is no warmth. There is some tenderness to palpation. HEART: Regular. LUNGS: Clear bilaterally. ABDOMEN: Soft and nondistended. EXTREMITIES: There is no lower extremity edema bilaterally. LABORATORY STUDIES: CBC reveals a white blood cell count of 13.1, hemoglobin 14.6, platelets are 302. Chemistry panel reveals a sodium of 138, potassium 4.6, chloride 107, bicarbonate 24, BUN 17, creatinine 0.7, glucose is 108. LFTs are within normal limits. Urinalysis is unremarkable. Blood and urine cultures are pending. IMAGING DATA: CT of the face is as above. ASSESSMENT AND PLAN: Facial cellulitis. She can continue on broad spectrum antibiotics pending the results of cultures; however, she will need tooth extraction for cure. We will follow along with you. Thank you for this consultation.
--- NOTE | 2016-12-17 13:33 | Hospitalist Progress Note ---
Hospitalist Progress Note Date of Service Dec 17, 2016. (Kiley Jarvis ., ADRIANA) Subjective Pt evaluation today including: conversation w/ patient, conversation w/ family , physical exam, chart review, lab review, review of inpatient medication list Voiding: no voiding problems Ms. Valladares feels that her jaw is becoming more edematous and is tender extending to her chest. She is not having any difficulty swallowing. Her pain is controlled with medications. Constitutional: No fever, No chills Respiratory: No shortness of breath Skin: + see HPI All Other Systems: Reviewed and Negative (Kiley Jarvis CRNP) Medications Medications (Trade) Dose Ordered Sig/Michael Route Start Time Stop Time Status Last Admin Dose Admin Sodium Chloride 1,000 ml @ 125 mls/hr Q8H STAT IV 12/16/16 21:22 12/17/16 03:44 DC 12/16/16 22:41 125 MLS/HR Sodium Chloride 1,000 ml @ 999 mls/hr Q1H1M STAT IV 12/16/16 21:22 12/16/16 22:22 DC 12/16/16 21:46 999 MLS/HR Ampicillin Sodium/ Sulbactam Sodium 3000 mg/Sodium Chloride 108 ml @ 200 mls/hr ONE ONCE IV 12/16/16 22:15 12/16/16 22:47 DC 12/16/16 22:41 200 MLS/HR Acetaminophen (Tylenol Tab) 1,000 mg NOW STAT PO 12/16/16 22:02 12/16/16 22:04 DC 12/16/16 22:14 1,000 MG Hydromorphone HCl (Dilaudid Inj) 1 mg Q15M PRN IV 12/16/16 22:15 12/17/16 03:44 DC 12/17/16 00:32 1 MG Ondansetron HCl (Zofran 8mg Iv) 8 mg NOW STAT IV 12/16/16 22:02 12/16/16 22:04 DC 12/16/16 22:13 8 MG Folic Acid (Folvite Tab) 1 mg DAILY PO 12/17/16 09:00 01/16/17 08:59 12/17/16 07:56 1 MG Ibuprofen (Motrin Tab) 800 mg TID PRN PO 12/17/16 01:15 01/16/17 01:14 12/17/16 07:57 800 MG Hydromorphone HCl (Dilaudid Inj) 0.5 mg Q4H PRN IV 12/17/16 01:15 12/31/16 01:14 12/17/16 12:50 0.5 MG Vancomycin HCl 1500 mg/Sodium Chloride 530 ml @ 200 mls/hr Q10H IV 12/17/16 05:00 12/27/16 04:59 12/17/16 05:38 200 MLS/HR Piperacillin Sod/ Tazobactam Sod 3.375 gm/Dextrose 115 ml @ 28.75 mls/ hr Q8H IV 12/17/16 10:00 12/27/16 09:59 12/17/16 10:09 28.75 MLS/HR Nicotine (Nicoderm Cq 14MG Patch) 1 patch QAM TD 12/17/16 05:00 01/16/17 04:59 12/17/16 07:58 1 PATCH Vancomycin HCl (Vancomycin 1gm/ 270ml Nss) 1 gm STK-MED ONCE .ROUTE 12/17/16 01:46 12/17/16 01:47 DC 12/17/16 01:47 1 GM Piperacillin Sod/ Tazobactam Sod 3.375 gm/Dextrose 115 ml @ 230 mls/hr NOW ONCE IV 12/17/16 04:00 12/17/16 04:29 DC 12/17/16 05:00 230 MLS/HR (Kiley Jarvis CRNP) Objective Vital Signs Date Time Temp Pulse Resp B/P (MAP) Pulse Ox O2 Delivery O2 Flow Rate FiO2 12/17/16 08:00 Room Air 12/17/16 07:25 36.8 59 18 108/66 (80) 97 Room Air 12/17/16 02:20 36.8 64 18 105/66 95 Room Air 12/17/16 01:57 75 18 110/63 96 12/17/16 01:19 81 12/16/16 23:36 89 18 99/65 96 Room Air 12/16/16 22:00 98 16 132/80 96 Room Air 12/16/16 21:46 98 12/16/16 21:37 97 Room Air 12/16/16 20:23 37.4 111 20 96/58 96 Room Air (Kiley Jarvis CRNP) Physical Exam Notes: General: no distress Eyes: normal inspection, PERLL Respiratory: chest non tender, clear to auscultation, normal breath sounds, no respiratory distress, no accessory muscle use Cardiac: regular rate and rhythm, no rub or gallop, no murmur, no edema, no jvd GI/: active bowel sounds, no abd pain or tenderness, soft, non distended Extremities: normal range of motion, normal strength, non tender Neuro/Psych: alert and oriented x 3, normal mood and affect Skin: right jaw edematous and slightly erythematous (Kiley Jarvis CRNP) Laboratory Results Last 24 Hours Test 12/16/16 21:33 12/17/16 00:23 White Blood Count 13.12 K/uL Red Blood Count 4.74 M/uL Hemoglobin 14.6 g/dL Hematocrit 42.0 % Mean Corpuscular Volume 88.6 fL Mean Corpuscular Hemoglobin 30.8 pg Mean Corpuscular Hemoglobin Concent 34.8 g/dl Platelet Count 302 K/uL Mean Platelet Volume 10.0 fL Neutrophils (%) (Auto) 82.7 % Lymphocytes (%) (Auto) 10.9 % Monocytes (%) (Auto) 5.3 % Eosinophils (%) (Auto) 0.7 % Basophils (%) (Auto) 0.1 % Neutrophils # (Auto) 10.85 K/uL Lymphocytes # (Auto) 1.43 K/uL Monocytes # (Auto) 0.70 K/uL Eosinophils # (Auto) 0.09 K/uL Basophils # (Auto) 0.01 K/uL RDW Standard Deviation 42.2 fL RDW Coefficient of Variation 13.0 % Immature Granulocyte % (Auto) 0.3 % Immature Granulocyte # (Auto) 0.04 K/uL Prothrombin Time 11.1 SECONDS Prothromb Time International Ratio 1.0 Activated Partial Thromboplast Time 24.0 SECONDS Partial Thromboplastin Ratio 0.9 Sodium Level 138 mmol/L Potassium Level 4.6 mmol/L Chloride Level 107 mmol/L Carbon Dioxide Level 24 mmol/L Anion Gap 7.0 mmol/L Blood Urea Nitrogen 17 mg/dl Creatinine 0.74 mg/dl Est Creatinine Clear Calc Drug Dose 111.6 ml/min Estimated GFR () 107.2 Estimated GFR (Non- 92.5 BUN/Creatinine Ratio 22.8 Random Glucose 108 mg/dl Calcium Level 9.2 mg/dl Magnesium Level 2.1 mg/dl Total Bilirubin 0.5 mg/dl Direct Bilirubin mg/dl Aspartate Amino Transf (AST/SGOT) 20 U/L Alanine Aminotransferase (ALT/SGPT) 21 U/L Alkaline Phosphatase 77 U/L Total Protein 7.1 gm/dl Albumin 3.8 gm/dl Lipase 194 U/L Thyroid Stimulating Hormone (TSH) 4.580 uIu/ml Chemistry Specimen Hemolysis Urine Color YELLOW Urine Appearance CLEAR Urine pH 5.5 Urine Specific [place] 1.044 Urine Protein NEG Urine Glucose (UA) NEG Urine Ketones NEG Urine Occult Blood NEG Urine Nitrite NEG Urine Bilirubin NEG Urine Urobilinogen NEG Urine Leukocyte Esterase NEG (Kiley Jarvis CRNP) Assessment and Plan Ms. Valladares is a 51 yo woman here with facial cellulitis x 1.5 weeks that failed both penicillin and clindamycin, no abscess on CT Cellulitis - Broaden abx to Vanco and Zosyn - ID consult RA - Hold MTX until it clears Discuss with maxillofacial surgery as to outpatient vs inpatient consultation for surgery Dispo: Med/Surg VTE: SCDs Code status: Full (Kiley Jarvis CRNP) [employer] Physician Supervision Note: I interviewed and examined the patient. Discussed with Clara Jarvis NP and agree with findings and plan as documented in the note. Any exceptions or clarifications are listed here: None Patient here with facial cellulitis worsened after outpatient antibiotics. The patient not seem to care for some time. [facility]anges dental care will ensue and next Vital signs are stable face is swollen and tender there is dental caries on her right lower mandible some macerated tissue to the angle of her right lower jaw however her face is not tense or tender there is no fluctuance there is no marked erythema. We'll continue broad-spectrum antibiotics with goal of returning to outpatient dental care a consider Augmentin on discharge has she's failed amoxicillin and clindamycin another consideration could be Bactrim pain control be given Documented By: Jose Coker (Jose Coker M.D.)
[2016-12-17 15:04] VITALS: BP 118/74; PULSE 73; TEMP 37.1; O2SAT 95
[2016-12-17] MEDS ORDERED: HYDROmorphone INJ 0.5 MG/0.5 ML SYR IV STA (17:58)
[2016-12-17] MEDS: ACETAMINOPHEN 500 MG TAB PO SCH (21:50)
[2016-12-17 23:47] VITALS: BP 139/90; PULSE 82; TEMP 36.8; O2SAT 95
[2016-12-18] MEDS: VANCOMYCIN INJ 1,500 MG in SODIUM CHLORIDE 0.9% 500ML 500 ML IV SCH (01:05)
[2016-12-18] MEDS: PIPERACILL/TAZOBAC IV 3.375 GM in DEXTROSE 5% 100ML 100 ML IV SCH ×2 (02:02→09:24)
[2016-12-18] MEDS: HYDROmorphone INJ 1 MG/ML SYR IV PRN (03:49)
[2016-12-18] MEDS: ACETAMINOPHEN 500 MG TAB PO SCH (04:55)
[2016-12-18] MEDS ORDERED: HYDROmorphone INJ 0.5 MG/0.5 ML SYR IV STA (07:10)
[2016-12-18] MEDS ORDERED: HYDROmorphone INJ 1 MG/ML SYR IV PRN (07:15)
[2016-12-18 07:19] VITALS: BP 144/87; PULSE 67; TEMP 36.9; O2SAT 98
[2016-12-18] MEDS: NICOTINE 14 MG/24 HR TDSY TD SCH (07:56)
[2016-12-18 08:42] LABS: CREATININE 0.73 mg/dl (0.60-1.20)
--- NOTE | 2016-12-18 09:21 | Discharge Instructions ---
Discharge Instructions Date of Service Dec 18, 2016. Admission Reason for Admission: Facial Cellulitis,Failure Of Outpatient Treatment Discharge Discharge Diagnosis / Problem: Facial Cellulitis Discharge Goals Goal(s): Decrease discomfort, Improve disease control Activity Recommendations Activity Limitations: resume your previous activity . Instructions / Follow-Up Instructions / Follow-Up Outpatient surgery with Dr. Edmond at their [place] office today at 3:00 pm. The address is [address] [place] [address]. The phone number is Wait to resume your methotrexate after your infection clears. Follow up with your doctor in about a week and discuss resumption of methotrexate with him/her before you start. Current Hospital Diet Patient's current hospital diet: AHA Diet (Heart Healthy) Discharge Diet Recommended Diet: Regular Diet Procedures Procedures Performed: Soft tissue neck CT. Pending Studies Studies pending at discharge: yes List of pending studies: blood cultures Laboratory Results Lipid Panel Test 09/26/16 08:54 Range/Units Triglycerides Level 47 0-150 mg/dl Cholesterol Level 199 0-200 mg/dl HDL Cholesterol 55 mg/dl Cholesterol/HDL Ratio 3.6 LDL Cholesterol, Calculated 135 mg/dl Medical Emergencies . Who to Call and When: Medical Emergencies: If at any time you feel your situation is an emergency, please call 911 immediately. . Non-Emergent Contact Non-Emergency issues call your: Primary Care Provider, Surgeon Call Non-Emergent contact if: you have a fever, temperature is above 100.5, your pain is not controlled, your pain is worsening, wound has increased drainage, wound has increased redness, wound has increased pain, you have any medication questions . Past History Medical & Surgical History: (1) Failure of outpatient treatment (2) Facial cellulitis (3) Tooth infection . "Provider Documentation" section prepared by Kiley Jarvis. . VTE Core Measure Inpt VTE Proph given/why not?: SCD's
[2016-12-18] MEDS ORDERED: DOXY-300 PO (09:25)
[2016-12-18] MEDS ORDERED: LEVO500T19 PO (09:25)
[2016-12-18] MEDS ORDERED: VANCOMYCIN INJ 1,500 MG in SODIUM CHLORIDE 0.9% 500ML 500 ML IV ONE (10:00)
[2016-12-18 11:33] VITALS: BP 144/87; PULSE 67; TEMP 36.9; O2SAT 98
--- NOTE | 2016-12-18 13:02 | Discharge Summary ---
Discharge Summary Date of Service Dec 18, 2016. (Kiley Jarvis CRNP) Discharge Summary Admission Date: Dec 17, 2016 at 01:18 Discharge Date: Dec 18, 2016 Discharge Disposition: Home Principal Diagnosis: facial cellulitis Immunizations: Have You Had Influenza Vaccine: Unknown History of Tetanus Vaccine?: Unknown History of Pneumococcal: Unknown History of Hepatitis B Vaccine: Unknown Procedures: Soft tissue neck CT IMPRESSION: 1. Dental disease with right-sided perimandibular soft tissue edema 2. No evidence of soft tissue abscess 3. No evidence of airway compromise (Kiley Jarvis CRNP) Medication Reconciliation New Medications: Doxycycline (Monohydrate) (Doxycycline) 100 Mg Cap 100 MG PO BID for 14 Days, #28 DOSE Levofloxacin (Levaquin) 500 Mg Tab 1 TAB PO DAILY for 14 Days, #14 TAB Continued Medications: Folic Acid (Folvite) 1 Mg Tab 1 MG PO DAILY, TAB Ibuprofen (Ibuprofen) 800 Mg Tab 800 MG PO TID PRN for Pain Ondansetron Hcl (Zofran) 4 Mg Tab 4 MG PO DAILY PRN for Nausea, TAB Oxycodone Ir (Roxicodone Ir) 5 Mg Tab 1-2 TAB PO Q4 PRN for Pain, #15 TAB For Initial Treatment Discontinued Medications: Clindamycin HCl (Clindamycin HCl) 300 Mg Cap 1 CAP PO TID for 7 Days, #21 CAP Methotrexate (Methotrexate) 2.5 Mg Tab 10 MG PO WK, TAB TAKE THIS MEDICATION EVERY SATURDAY Discharge Exam Review of Systems: Constitutional: No fever, No chills Respiratory: No shortness of breath Cardiovascular: No chest pain Abdomen: No nausea, No vomiting, No diarrhea Integumentary: + problem reported (facial swelling and pain right jaw) Physical Exam: General Appearance: WD/WN, no apparent distress Respiratory/Chest: chest non-tender, lungs clear, normal breath sounds, no respiratory distress, no accessory muscle use Cardiovascular: regular rate, rhythm, no murmur Abdomen / GI: normal bowel sounds, non tender, soft Neurologic/Psychiatric: alert, normal mood/affect, oriented x 3 Skin: normal color, warm/dry, + pertinent finding (right jaw edema, less than yesterday) (Kiley Jarvis CRNP) Hospital Course Ms. Valladares is a 51 yo woman here with facial cellulitis x 1.5 weeks that failed both penicillin and clindamycin, no abscess on CT Cellulitis - Broaden abx to Vanco and Zosyn - D/C with levaquin and doxycycline po per ID - ID consult RA - Hold MTX until it clears Discharged to outpatient appointment with maxillofacial surgery at 1500 today. Dispo: Med/Surg VTE: SCDs Code status: Full Total Time Spent: Greater than 30 minutes This includes examination of the patient, discharge planning, medication reconciliation, and communication with other providers. (Kiley Jarvis CRNP) ESTATE PLANNING ATTORNEY Physician Supervision Note: I interviewed and examined the patient. Discussed with Kiley Jarvis ESTATE PLANNING ATTORNEY and agree with findings and plan as documented in the note. Any exceptions or clarifications are listed here: None Patient has some improvement in swelling overnight, she is scheduled for outpatient oral surgery today Infectious disease recommends doxycycline and levofloxacin Vitals are stable. Pain control is variable, face swelling has improved Discharged for outpatient oral surgery for definitive treatment of periodontal infection Documented By: Jose Coker (Jose Coker M.D.) Discharge Instructions Please refer to the electronic Patient Visit Report (Discharge Instructions) for additional information. (Kiley Jarvis CRNP)
[2016-12-18] MEDS ORDERED: VANCOMYCIN TROUGH ONE (20:30)
[2016-12-20] MEDS ORDERED: METHOTREXATE 2.5 MG TAB PO SCH (08:00)
== END 2016-12-18 13:20 | disposition home or self-care (01) | DRG 603 ==
LOC: C.EDB 20:09 → C.MED 12-17 01:18 → ENRESERV 12-17 01:50
PROVIDERS: ADMIT Hospitalist; ATTEND Internal Medicine
DX: L03.211 Cellulitis of face (principal); Z79.899 Other long term (current) drug therapy; M06.9 Rheumatoid arthritis, unspecified; K04.7 Periapical abscess without sinus; Z85.828 Personal history of other malignant neoplasm of skin